=== PATIENT | female | born 1995 | race Two or more races ===

== ENCOUNTER 2024-03-10 09:52 | Emergency (ER) | payer OTHER ==
[~2024-03-10] VITALS: Ht 167.6 cm; Wt 64.9 kg
--- NOTE | 2024-03-10 10:23 | ED.PDOC ---
SOB-HPI HPI Comments HPI Poor historian 29-year-old female presents to the emergency department for evaluation of a sore throat for the last four days progressively getting worse. She tried some [id number] Tylenol and one pill of amoxicillin left over last night. Patient has pain with swallowing. Denies any other acute symptoms. Denies any fever or drooling or airway compromise. Patient denies . She is here with her baby. Vitals: Temp: 98.2 F Heart rate: 97 RR: 16 BP: 130/82 02 sat: 98% on room air PMH: denies PSH: social history: endorses tobacco use(vape), ETOH use, drug use (marijuana) medications: denies allergies: NKDA REVIEW OF SYSTEMS: CONSTITUTIONAL: Denies acute: fever, diaphoresis, chills, generalized weakness. HEAD: Denies acute: headache, photophobia Eyes: Denies acute: Double vision, vision loss, eye pain, eye discharge. EARS: Denies acute: tinnitus, hearing loss, ear discharge, ear pain, THROAT: Denies acute: change in voice. NECK: Denies acute: neck pain, neck swelling, stiff neck. HEART: Denies acute : chest pain, palpitations, LUNGS: Denies acute: SOB, wheezing, cough, hemoptysis ABDOMEN: Denies acute: abdominal pain, Nausea, Vomiting, diarrhea, melena , hematemesis, hematochezia SKIN: Denies acute: rash, redness, lesions, itchiness. EXTREMITIES: Denies acute: calf pain, numbness, tingling, weakness, denies pain in extremity. Denies acute: Low back pain. Neuro: Denies acute: focal neurological deficit, motor or sensory focal neurological deficit, tremors, seizure like activity, confusion, dizziness, change in mental status, loss of bowel or bladder function, cauda equina like symptoms. : Denies acute: dysuria, hematuria, flank pain, increase in urinary frequency. PSYCH: Denies acute: hallucination, suicidal ideation, homicidal ideation. FEMALE: Denies acute: abnormal vaginal bleeding, foul odor, unusual discharge. PHYSICAL EXAM: General: no acute distress, awake and alert. Head: normocephalic, atraumatic. Neck: supple, trachea is midline, no swelling. Throat: Noted right tonsillar swelling with exudates and erythema and tenderness to palpation. No airway compromise, no deviation, possible abscess. No drooling, no tripoding. Eyes:, no erythema, no purulent discharge, no proptosis, no icterus. Heart: regular rate, regular rhythm, no significant murmur appreciated. Lungs: no apparent respiratory distress, Able to speak in full sentences. No wheezing, no rhonchi, no crackles. No stridors Clear to auscultation bilaterally. Abdomen: non tender to palpation, non distended, soft, no guarding, no rebound, + bowel sounds. Neuro: Awake, Alert, oriented to name, self, situation, follows commands GCS=15. Speech is normal. Skin: no petechia, no purpura, no cyanosis, non-pale, not jaundice. Lower extremities: --no - Pitting edema no deformity, no focal swelling, no calf TTP. Makes eye contact. moves all four extremities. Face: no apparent facial droop. Ambulating in the ED independently. No nuchal rigidity, Kernig's sign, Brudzinski's sign, no meningeal signs. Chief Complaint: Sore Throat Time Seen by MD: 10:10 Information Source: Patient Mode of Arrival: Ambulatory Brought in by: self Past Medical History Pediatric Medical History: Denies Operations: Denies Family History Family History: Reviewed,noncontributory to illness Social History Smoking: Other (vape) Alcohol: Denies ETOH Use Drugs: Marijuana Lives In: Home Was a procedure done? Was a procedure done?: No Differential Dx Differential Diagnosis: Bronchitis, Peritonsillar Abscess, Peritonsillar Cellulitis, Pharyngitis Comments Tracheitis, laryngitis, epiglottitis, X-Ray, Labs, Meds, VS Vital Signs Date Time Temp Pulse Resp B/P (MAP) Pulse Ox O2 Delivery O2 Flow Rate FiO2 03/10/24 12:27 79 13 98 Room Air* 0 21 03/10/24 12:25 97.8 79 13 124/57 (79) 98 97.8 03/10/24 11:09 83 16 99 Room Air 03/10/24 11:09 98.7 83 17 121/60 (80) 99 98.7 03/10/24 10:05 98.2 97 16 130/81 (97) 98 Lab Test 03/10/24 10:18 03/10/24 10:15 Range/Units White Blood Count 11.1 H 4.4-10.8 10^3/uL Red Blood Count 4.15 4.0-5.20 10^6/uL Hemoglobin 13.1 12.2-16.2 g/dL Hematocrit 38.7 36.0-46.0 % Mean Corpuscular Volume 93.4 80.0-100.0 fL Mean Corpuscular Hemoglobin 31.5 28.0-32.0 pg Mean Corpuscular Hemoglobin Concent 33.8 32.0-36.0 g/dL Red Cell Distribution Width 13.3 11.8-14.3 % Platelet Count 282 140-450 10^3/uL Mean Platelet Volume 7.8 6.9-10.8 fL Neutrophils (%) (Auto) 80.1 H 37.0-80.0 % Lymphocytes (%) (Auto) 12.0 10.0-50.0 % Monocytes (%) (Auto) 7.2 0.0-12.0 % Eosinophils (%) (Auto) 0.5 0.0-7.0 % Basophils (%) (Auto) 0.2 0.0-2.0 % Neutrophils # (Auto) 8.9 H 1.6-8.6 10 ^3/uL Lymphocytes # (Auto) 1.3 0.4-5.4 10 ^3/uL Monocytes # (Auto) 0.8 0-1.3 10 ^3/uL Eosinophils # (Auto) 0.1 0-0.8 10 ^3/uL Basophils # (Auto) 0 0-0.2 10 ^3/uL Nucleated Red Blood Cells 0.0 % Sodium Level 140 136-145 mmol/L Potassium Level 3.4 L 3.5-5.1 mmol/L Chloride Level 108 H 98-107 mmol/L Carbon Dioxide Level 27 20-31 mmol/L Anion Gap 5 5-15 Blood Urea Nitrogen 9 9-23 mg/dL Creatinine 0.69 0.550-1.02 mg/dL Glomerular Filtration Rate Calc 119 >90 mL/min BUN/Creatinine Ratio 13.0 10.0-20.0 Serum Glucose 102 74-106 mg/dL Calcium Level 10.2 8.7-10.4 mg/dL Group A Streptococcus Rapid Negative Current Medications Medications (Trade) Dose Ordered Sig/Renay Route Start Time Stop Time Status Last Admin Dexamethasone Sodium Phosphate (Decadron Injection) 10 mg ONCE ONCE IM 03/10/24 10:30 03/10/24 10:31 DC 03/10/24 11:04 Ampicillin Sodium/ Sulbactam Sodium 3 gm/Sodium Chloride 100 ml @ 100 mls/hr ONCE STAT IV 03/10/24 11:55 03/10/24 12:54 DC 03/10/24 12:38 [place] [id number] Ph: [phone] DIAGNOSTIC IMAGING Diagnostic Imaging Report : [id number] Signed PATIENT: ALEXIS MARTIN ACCT: [id number] UNIT: [id number] : 1995 LOC: ER ROOM / BED: / AGE / SEX: 29 / F ADM STATUS: REG ER SERVICE 1014 ORDERING PHYSICIAN: EARNEST BURCH DO PROCEDURE(s): NK2CT - NECK WITH CONTRAST SOFT REASON: R/O ABSCESS ORDER NUMBER(s): [id number], ACCESSION NUMBER(s): [id number] CT NECK Clinical History: R/O ABSCESS Comparison: None Technique: Multiple contiguous CT images of the neck were obtained with intravenous contrast. These images were reformatted degenerate coronal and sagittal reconstructions. Radiation Dose Information: CT Dose: CTDI volume is 12.05 mGy. Dose-length product is 418.8 mGy*cm Findings: There is a 2.2 x 2.1 cm enhancing mass in the right palatine tonsil. There is effacement of the right parapharyngeal fat. There is a 1.1 cm hypodense collection with enhancing wall centrally within this mass compatible with abscess or necrosis. There are several enlarged right level 2 lymph nodes measuring 1.0 cm and 1.5 cm. There is a mildly prominent left level 2 lymph node measuring 0.9 cm. The salivary and thyroid glands appear within normal limits. The visualized intracranial and intraorbital contents appear within normal limits. The lung apices are clear. The visualized paranasal sinuses and mastoid air cells are also clear. The osseous structures appear within normal limits. Impression: 1. 2.2 x 2.1 cm enhancing mass in the right palatine tonsil. A tonsillar malignant process is not excluded. Tissue biopsy is recommended . 2. There is a 1.1 cm hypodense collection with enhancing wall centrally within this mass compatible with an abscess or necrosis. 3. There are several enlarged right level 2 lymph nodes measuring up to 1.5 cm. There is also a mildly prominent left level 2 lymph node measuring 0.9 cm. Metastatic lymphadenopathy is not excluded. HS:Y ATED BY: VERNON SALINAS MD DICTATED DATE/TIME: 03/10/241137 SIGNED BY: VERNON SALINAS MD SIGNED DATE/TIME: 03/10/241137 CC: Time of 1ST Reevaluation: 12:27 (The case was discussed with the admitting team (HPI, physical exam, labs and diagnostic tests that were available at the time of disposition, ED course, treatment plan) on the phone. They agreed to admit the receive the patient to the ER. Accepting physician is Dr. Guicho Gray. I spoke with Corinna at the transfer center.) Reevaluation 1ST: Improved Time of 2ND Reevaluation: 13:12 Reevaluation 2ND: Improved Patient Education/Counseling: Diagnosis, Treatment Family Education/Counseling: No Family Present Comments Patient presented with the above HPI.---sore throat--workup was initiated. patient was found with the above mentioned diagnosis. Patient was given: Decadron, Unasyn antibiotics, normal saline fluids. Patient ED course and VS have been stabilized. Patient has been reassessed in the ED and remained in a stable condition. Pertinent incidental findings were discussed with the patient and/or family. Patient/family voices understanding and is agreeable with plan. Patient has been observed in the ED adequate length of time to insure improvement/stability. patient was transferred to higher level of care for ENT evaluation to the medicine team for further evaluation and treatment of their presentation. All the reports of any imaging studies that were ordered by myself were reviewed by myself. Departure 1 Departure Time of Disposition: 12:27 Impression: Primary Impression: Tonsillar abscess Additional Impressions: Tonsillar mass Pharyngitis Disposition: 02 SHORT TERM HOSPITAL Condition: Guarded Discharged With: Self Critical Care Note Critical Care Time?: No I personally scribed for EARNEST BURCH DO ([email or web address]) on 03/10/24 at 10:23. Electronically submitted by Myles Martinez ([facility]). I personally scribed for EARNEST BURCH DO ([facility]) on 03/10/24 at 10:37. Electronically submitted by Mlyes Martinez ([facility]). I personally scribed for EARNEST BURCH DO ([facility]) on 03/10/24 at 10:45. Electronically submitted by Myles Martinez ([facility]). I personally scribed for EARNEST BURCH DO ([facility]) on 03/10/24 at 11:53. Electronically submitted by Myles Martinez ([facility]). EARNEST BURCH DO Mar 10, 2024 10:23
[2024-03-10 10:44] LABS: Basophils # (auto) 0 10 ^3/uL (0-0.2); Basophils % (auto) 0.2 % (0.0-2.0); Eosinophils # (auto) 0.1 10 ^3/uL (0-0.8); Eosinophils % (auto) 0.5 % (0.0-7.0); Hematocrit 38.7 % (36.0-46.0); Hemoglobin 13.1 g/dL (12.2-16.2); Lymphocytes # (auto) 1.3 10 ^3/uL (0.4-5.4); Mean Corpuscular Hemoglobin 31.5 pg (28.0-32.0); Mean Corpuscular Hgb Conc. 33.8 g/dL (32.0-36.0); Mean Corpuscular Volume 93.4 fL (80.0-100.0); Monocytes # (auto) 0.8 10 ^3/uL (0-1.3); Monocytes % (auto) 7.2 % (0.0-12.0); Neutrophils # (auto) 8.9 10 ^3/uL (1.6-8.6); Neutrophils % (auto) 80.1 % (37.0-80.0); Platelet Count (auto) 282 10^3/uL (140-450); Red Blood Cells 4.15 10^6/uL (4.0-5.20); Red Cell Distribution Width 13.3 % (11.8-14.3); White Blood Cell 11.1 10^3/uL (4.4-10.8)
[2024-03-10 10:48] LABS: Chloride 108 mmol/L (98-107); Potassium 3.4 mmol/L (3.5-5.1); Sodium 140 mmol/L (136-145)
[2024-03-10 10:50] LABS: Anion Gap 5 (5-15); Calcium 10.2 mg/dL (8.7-10.4); Carbon Dioxide 27 mmol/L (20-31)
[2024-03-10 10:55] LABS: Blood Urea Nitrogen 9 mg/dL (9-23); Glucose 102 mg/dL (74-106)
[2024-03-10] MEDS: DexAMETHasone SOD PHOS 10MG/1ML VIAL INJ IM ONE (11:04)
[2024-03-10] MEDS: IOHEXOL 300 MG/ML 100ML BOTTLE IJ ONE (11:07)
[2024-03-10 11:36] LABS: Rapid Strep A Screen-Throat Negative
--- NOTE | 2024-03-10 11:39 | DVH ---
CT NECK Clinical History: R/O ABSCESS Comparison: None Technique: Multiple contiguous CT images of the neck were obtained with intravenous contrast. These images were reformatted degenerate coronal and sagittal reconstructions. Radiation Dose Information: CT Dose: CTDI volume is 12.05 mGy. Dose-length product is 418.8 mGy*cm Findings: There is a 2.2 x 2.1 cm enhancing mass in the right palatine tonsil. There is effacement of the right parapharyngeal fat. There is a 1.1 cm hypodense collection with enhancing wall centrally within this mass compatible with abscess or necrosis. There are several enlarged right level 2 lymph nodes measuring 1.0 cm and 1.5 cm. There is a mildly p rominent left level 2 lymph node measuring 0.9 cm. The salivary and thyroid glands appear within normal limits. The visualized intracranial and intraorbital contents appear within normal limits. The lung apices ar e clear. The visualized paranasal sinuses and mastoid air cells are also clear. The osseous structures appear within normal limits. Impression: 1. 2.2 x 2.1 cm enhancing mass in the right palatine tonsil. A tonsillar malignant process is not exc luded. Tissue biopsy is recommended . 2. There is a 1.1 cm hypodense collection with enhancing wall centrally within this mass compatible w ith an abscess or necrosis. 3. There are several enlarged right level 2 lymph nodes measuring up to 1.5 cm. There is also a mildl y prominent left level 2 lymph node measuring 0.9 cm. Metastatic lymphadenopathy is not excluded. HS:Y
[2024-03-10 12:27] VITALS: PULSE 79; RESP 13; O2SAT 98
[2024-03-10] MEDS: SODIUM CHLORIDE 0.9% 1,000 ML IV ONE (12:30)
[2024-03-10] MEDS: AMPICILLIN & SULBACTAM SODIUM 3 GM in SODIUM CHL 0.9% 100 ML IV STA (12:38)
[2024-03-10 16:29] VITALS: BP 129/81; PULSE 106; RESP 22; TEMP 97.8; O2SAT 98
== END 2024-03-10 11:56 | disposition short-term general hospital (02) ==
LOC: ER 09:52
DX: J36 Peritonsillar abscess (principal); F12.90 Cannabis use, unspecified, uncomplicated; F17.290 Nicotine dependence, other tobacco product, uncomplicated
CPT/HCPCS: 36415; 70491; 80048; 85025; 87070; 87880; 96365; 96372; 99285; J1100; Q9967